=== PATIENT | male | born 1950 | race Caucasian/White ===

== ENCOUNTER 2023-02-14 11:58 | Emergency (ER) | payer MEDICARE ==
[~2023-02-14] VITALS: Ht 165.1 cm; Wt 82.6 kg
[2023-02-14 14:45] VITALS: BP 120/64
[2023-02-14] MEDS ORDERED: MEDDOSEPAK PO (14:47)
[2023-02-14] MEDS ORDERED: ZPAK PO (14:47)
== END 2023-02-14 14:51 | disposition home or self-care (01) ==
LOC: ED 11:58
DX: J40 Bronchitis, not specified as acute or chronic (principal); J43.9 Emphysema, unspecified; I10 Essential (primary) hypertension; F17.210 Nicotine dependence, cigarettes, uncomplicated; Z20.822 Contact with and (suspected) exposure to COVID-19